=== PATIENT | male | born 1995 | race Two or more races ===

== ENCOUNTER 2020-05-01 23:30 | Emergency (ER) | payer MEDICAID, OTHER ==
[~2020-05-01] VITALS: Ht 170.2 cm; Wt 63.5 kg
[2020-05-01 23:44] VITALS: BP 122/73
[2020-05-02] MEDS ORDERED: LIDOCAINE 1% HCL (LOCAL ANESTH.) INJ 20ML MDV ONE
[2020-05-02] MEDS ORDERED: NEOMYCIN-BACITRACIN-POLYM UNITDOSE PKG TOP OINT TOP ONE (00:30)
== END 2020-05-02 00:42 | disposition home or self-care (01) ==
LOC: ER 23:31
DX: S61.002A Unspecified open wound of left thumb without damage to nail, initial encounter (principal); X58.XXXA Exposure to other specified factors, initial encounter; Y93.89 Activity, other specified; Y92.89 Other specified places as the place of occurrence of the external cause; Y99.8 Other external cause status
CPT/HCPCS: 11730; 99284; J2001